=== PATIENT | female | born 1960 | race African-American/Black ===

== ENCOUNTER 2016-08-16 17:44 | Emergency (ER) | payer OTHER ==
[~2016-08-16] VITALS: Ht 157.5 cm; Wt 79.1 kg
[~2016-08-16 17:44] MED LIST: ALPR0.5T8 PO; AMLO-511 PO; CARV3 PO; FURO40 PO; INSLAN SQ; INSU100C3 SQ; LISI-662 PO; LORA10TA7 PO; MAG1CAPS4 PO; PANT40TA25 PO; ROSU20 PO
[2016-08-16 17:52] LABS: GLUCOSE,POINT OF CARE 154 MG/DL (70-110)
[2016-08-16 18:37] VITALS: BP 134/67
[2016-08-16] MEDS ORDERED: ALBUTEROL SULFATE 2.5 MG/0.5 ML NEB SOLUTION NEB ONE ×2 (19:00→19:11)
[2016-08-16] MEDS ORDERED: IPRATROPIUM BROMIDE 0.5 MG/2.5 ML NEB SOLUTION NEB ONE (19:00)
[2016-08-16] MEDS ORDERED: 0.9% SODIUM CHLORIDE 5 ML NEB SOLUTION NEB ONE (19:11)
== END 2016-08-16 19:59 | disposition home or self-care (01) ==
LOC: EMS 17:46
DX: R05 Cough (principal); E11.9 Type 2 diabetes mellitus without complications; I10 Essential (primary) hypertension; Z79.4 Long term (current) use of insulin; Z88.0 Allergy status to penicillin; Z88.5 Allergy status to narcotic agent; Z88.8 Allergy status to other drugs, medicaments and biological substances; Z88.6 Allergy status to analgesic agent
CPT/HCPCS: 71010; 82962; 94640; 99283; J7613

== ENCOUNTER 2016-11-19 09:12 | Day surgery (SDC) | payer OTHER ==
[~2016-11-19] VITALS: Ht 157.5 cm; Wt 80.0 kg
[~2016-11-19 09:12] MED LIST changes: +0.9% SODIUM CHLORIDE 10 ML SYRINGE IVP PRN; +ALBU8.5H IH; -AMLO-511 PO; +AMLO-512 PO; +AZEL137S8 NASAL; -CARV3 PO; +CARV6 PO; +CLOP75 PO; +GUAI100S13 PO; +MOME13HF IH; +SODI650T PO; +XALA2.5OS OU
[2016-11-19] MEDS ORDERED: METOPROLOL TARTRATE 50 MG TABLET PO ONE (09:30)
[2016-11-19] MEDS ORDERED: SODIUM CHLORIDE 0.9% 0 ML ONE (09:37)
[2016-11-19] MEDS ORDERED: IOVERSOL 350 MG/ML 100 ML VIAL ONE (09:37)
[2016-11-19] MEDS ORDERED: 0.9% SODIUM CHLORIDE 10 ML SYRINGE IVP ONE ×2 (10:39→10:41)
[2016-11-19 10:49] LABS: CALCIUM, TOTAL 9.6 mg/dL (8.8-10.5); CREATININE 3.08 mg/dL (0.60-1.30); POTASSIUM 4.5 mmol/L (3.5-5.1)
[2016-11-19] MEDS ORDERED: METOPROLOL TARTRATE 50 MG TABLET ONE (10:57)
== END 2016-11-19 11:35 | disposition home or self-care (01) ==
LOC: SDS 09:12 → EDSTATUS 11:00 → SDS 11:35
PROVIDERS: ATTEND Internal Medicine Cardiovascular Disease
DX: I65.23 Occlusion and stenosis of bilateral carotid arteries (principal); Z53.8 Procedure and treatment not carried out for other reasons; E11.22 Type 2 diabetes mellitus with diabetic chronic kidney disease; I12.9 Hypertensive chronic kidney disease with stage 1 through stage 4 chronic kidney disease, or unspecified chronic kidney disease; N18.9 Chronic kidney disease, unspecified; E11.36 Type 2 diabetes mellitus with diabetic cataract; E11.39 Type 2 diabetes mellitus with other diabetic ophthalmic complication; H40.9 Unspecified glaucoma; E78.5 Hyperlipidemia, unspecified; J44.9 Chronic obstructive pulmonary disease, unspecified; M54.9 Dorsalgia, unspecified; K29.70 Gastritis, unspecified, without bleeding; Z88.0 Allergy status to penicillin; Z98.890 Other specified postprocedural states; Z90.710 Acquired absence of both cervix and uterus; Z87.891 Personal history of nicotine dependence; Z86.19 Personal history of other infectious and parasitic diseases
CPT/HCPCS: 93005; J7050

== ENCOUNTER 2017-02-06 06:01 | Day surgery (SDC) | payer OTHER ==
[~2017-02-06] VITALS: Ht 160 cm; Wt 81.8 kg
[~2017-02-06 06:01] MED LIST changes: -0.9% SODIUM CHLORIDE 10 ML SYRINGE IVP PRN; -ALBU8.5H IH; +ALBU8.5H8 IH
[2017-02-06] MEDS ORDERED: BENZOCAINE 20% 50 MCG/SPRAY 57 GM TP ONE (06:02)
[2017-02-06] MEDS ORDERED: LIDOCAINE HCL 4% 50 ML SOLUTION TP ONE (06:02)
[2017-02-06] MEDS ORDERED: LIDOCAINE HCL 2% 30 ML JELLY TP ONE (06:02)
[2017-02-06] MEDS ORDERED: ALBUTEROL SULFATE 2.5 MG/0.5 ML NEB SOLUTION NEB ONE (06:02)
[2017-02-06] MEDS ORDERED: SODIUM CHLORIDE 0.9% 1,000 ML IV ONE ×2 (06:13→06:15)
[2017-02-06 06:47] LABS: GLUCOSE,POINT OF CARE 232 MG/DL (70-110)
[2017-02-06] MEDS ORDERED: FentaNYL CITRATE-PF 100 MCG/2 ML VIAL ONE (07:05)
[2017-02-06] MEDS ORDERED: MIDAZOLAM HCL 2 MG/2 ML VIAL ONE (07:05)
[2017-02-06] MEDS ORDERED: MethylPREDNISolone SOD SUCC 125 MG/2 ML VIAL IVP ONE (08:30)
[2017-02-06 10:22] LABS: GLUCOSE,POINT OF CARE 204 MG/DL (70-110)
[2017-02-06] MEDS ORDERED: OXYGEN THERAPY IH SCH (20:00)
== END 2017-02-06 10:25 | disposition home or self-care (01) ==
LOC: SURGERY 06:01
PROVIDERS: ATTEND Internal Medicine Critical Care Medicine
DX: J38.4 Edema of larynx (principal); B37.0 Candidal stomatitis; J44.9 Chronic obstructive pulmonary disease, unspecified; E78.00 Pure hypercholesterolemia, unspecified; F32.9 Major depressive disorder, single episode, unspecified; K21.9 Gastro-esophageal reflux disease without esophagitis; M19.90 Unspecified osteoarthritis, unspecified site; Z88.0 Allergy status to penicillin; Z88.8 Allergy status to other drugs, medicaments and biological substances; Z79.01 Long term (current) use of anticoagulants; Z79.4 Long term (current) use of insulin; Z90.710 Acquired absence of both cervix and uterus; Z87.891 Personal history of nicotine dependence; Z98.890 Other specified postprocedural states
CPT/HCPCS: 31623; 31624; 71010; 82962; 87015 ×2; 87070; 87101; 87147; 87205; 87220; 88108; 88312; 93005; J2250; J2930; J3010; J7030

== ENCOUNTER 2017-05-01 18:41 | Emergency (ER) | payer OTHER ==
[~2017-05-01] VITALS: Ht 157.5 cm; Wt 81.8 kg
[2017-05-01 19:14] LABS: GLUCOSE,POINT OF CARE 139 MG/DL (70-110)
[2017-05-01 19:45] LABS: BASOPHILS # (AUTO) 0.04 K/uL (0.00-0.20); BASOPHILS % (AUTO) 0.6 % (0.0-2.0); EOSINOPHILS # (AUTO) 0.26 K/uL (0.00-0.70); EOSINOPHILS % (AUTO) 3.98 % (1.0-6.0); HEMATOCRIT 39.6 % (36-46); LYMPHOCYTES # (AUTO) 2.1 K/uL (1.0-4.8); LYMPHOCYTES % (AUTO) 31.7 % (22.0-44.0); MEAN CORPUSCULAR HEMOGLOBIN 29.7 pg (26.0-34.0); MEAN CORPUSCULAR HGB CONC 32.7 G/dL (31.0-37.0); MEAN CORPUSCULAR VOLUME 91 fL (80-100); MONOCYTES # (AUTO) 0.4 K/uL (0.1-1.0); MONOCYTES % (AUTO) 5.4 % (2.0-9.0); NEUTROPHILS # (AUTO) 3.8 K/uL (1.8-7.7); NEUTROPHILS % (AUTO) 58.3 % (40.0-70.0); PLATELET COUNT (AUTO) 131 K/uL (150-450); RED BLOOD CELL COUNT(AUTO) 4.36 MIL/uL (4.00-5.20); RED CELL DISTRIBUTION WIDTH 14.4 % (11.5-14.5); WHITE BLOOD COUNT (AUTO) 6.5 K/uL (4.5-11.0)
[2017-05-01 19:56] LABS: CREATININE 2.37 mg/dL (0.60-1.30); POTASSIUM 4.3 mmol/L (3.5-5.1)
[2017-05-01 20:02] LABS: ALBUMIN 3.6 g/dL (3.4-5.0); BILIRUBIN,TOTAL 0.2 mg/dL (0.1-1.0); TOTAL PROTEIN, SERUM 7.4 g/dL (6.4-8.2)
[2017-05-01 21:18] LABS: APPEARANCE,URINE CLEAR (CLEAR); GLUCOSE, URINE (UA) NEGATIVE (NEGATIVE); KETONES,URINE NEGATIVE (NEGATIVE); LEUKOCYTE ESTERASE ,URINE NEGATIVE (NEGATIVE); OCCULT BLOOD,URINE NEGATIVE (NEGATIVE)
[2017-05-01 21:19] LABS: ADD UA MICROSCOPIC NO; PROTEIN,URINE NEGATIVE (NEGATIVE)
[2017-05-01] MEDS ORDERED: FentaNYL CITRATE-PF 100 MCG/2 ML VIAL IVP ONE (22:00)
[2017-05-01 22:20] VITALS: BP 152/73
[2017-05-01] MEDS ORDERED: FentaNYL CITRATE-PF 100 MCG/2 ML VIAL IM ONE (22:45)
== END 2017-05-01 22:54 | disposition home or self-care (01) ==
LOC: EMS 18:46
DX: R10.13 Epigastric pain (principal); H92.02 Otalgia, left ear; E11.9 Type 2 diabetes mellitus without complications; I10 Essential (primary) hypertension; Z87.891 Personal history of nicotine dependence; Z88.0 Allergy status to penicillin; Z88.5 Allergy status to narcotic agent; Z88.8 Allergy status to other drugs, medicaments and biological substances
CPT/HCPCS: 36415; 80053; 81003; 82962; 83690; 84703; 85025; 96372; 99284; J3010

== ENCOUNTER → 2017-07-08 | Outpatient (CLI) | payer OTHER ==
[~2017-07-08] MED LIST changes: -MAG1CAPS4 PO; +MAGNESIUM-VIT1 EACH PO
== END | disposition home or self-care (01) ==
LOC: RADPV 08:33
PROVIDERS: ATTEND Internal Medicine Cardiovascular Disease
DX: R07.89 Other chest pain (principal); I70.0 Atherosclerosis of aorta; I50.9 Heart failure, unspecified; I65.29 Occlusion and stenosis of unspecified carotid artery
CPT/HCPCS: 71046

== ENCOUNTER 2017-07-11 22:10 | Emergency (ER) | payer OTHER ==
[~2017-07-11] VITALS: Ht 157.5 cm; Wt 81.8 kg
[2017-07-11 23:09] LABS: GLUCOSE,POINT OF CARE 119 MG/DL (70-110)
[2017-07-12 00:33] LABS: GLUCOSE,POINT OF CARE 102 MG/DL (70-110)
[2017-07-12 01:25] VITALS: BP 121/76
== END 2017-07-12 01:44 | disposition home or self-care (01) ==
LOC: EMS 22:13
DX: R00.2 Palpitations (principal); F41.9 Anxiety disorder, unspecified; E11.9 Type 2 diabetes mellitus without complications; I10 Essential (primary) hypertension; Z87.891 Personal history of nicotine dependence; Z88.5 Allergy status to narcotic agent; Z88.0 Allergy status to penicillin; Z88.8 Allergy status to other drugs, medicaments and biological substances; Z79.4 Long term (current) use of insulin
CPT/HCPCS: 82962; 93005; 99283

== ENCOUNTER 2018-01-03 10:23 | Emergency (ER) | payer OTHER ==
[~2018-01-03] VITALS: Ht 157.5 cm; Wt 80.9 kg
[2018-01-03 10:30] VITALS: BP 147/93
[2018-01-03 10:43] LABS: GLUCOSE,POINT OF CARE 113 MG/DL (70-110)
== END 2018-01-03 10:45 | disposition left against medical advice (07) ==
LOC: EMS 10:24
DX: R10.9 Unspecified abdominal pain (principal); Z53.21 Procedure and treatment not carried out due to patient leaving prior to being seen by health care provider